=== PATIENT | female | born 1935 | race Caucasian/White ===

== ENCOUNTER 2018-07-06 08:49 | Inpatient (IN) ==
[2018-07-06 09:24] LABS: INFLUENZA A NEGATIVE (NEGATIVE); INFLUENZA B NEGATIVE (NEGATIVE)
[2018-07-06 09:41] LABS: BASO# 0.03 X1000 (0.0-0.2); BASO% 0.3 % (0.0-0.8); EOS# 0.12 X1000 (0.0-0.7); EOS% 1.1 % (0.0-10.0); HEMATOCRIT 36.7 % (37.0-47.0); HEMOGLOBIN 11.7 g/dL (12.0-16.0); IMM GRAN# 0.04 X1000 (0.0-0.04); IMM GRAN% 0.4 % (0.0-0.5); LYMPH# 0.92 X1000 (1.2-3.4); LYMPH% 8.2 % (20.5-51.1); MCH 27.5 PG (27-31); MCHC 31.9 g/dL (33-37); MCV 86.2 FL (81-99); MONO# 1.04 X1000 (0.11-0.59); MONO% 9.2 % (1.7-9.3); NEUT# 9.11 X1000 (1.4-6.5); NEUT% 80.8 % (42.2-75.2); PLT 310 X1000 (130-400); RBC 4.26 XMIL (4.2-5.4); RDW 14.7 % (11.5-14.5); WBC 11.26 X1000 (4.8-10.8)
--- NOTE | 2018-07-06 09:48 | Diag Imaging Result Doc PS360 ---
EXAM: CHEST-2 VIEWS HISTORY: sob TECHNIQUE: Chest two views COMPARISON: None. FINDINGS: The lungs are hyperexpanded. The heart is enlarged. There are sternal wires and surgical clips as well as a left-sided pacemaker. Infiltrates are found in the lower right lung and there is a tiny right pleural effusion. There is a granuloma in the right apex. There is collapse of an upper lumbar vertebra. Severe atherosclerosis. IMPRESSION: 1.Emphysema 2.Right lower lung infiltrates 3.Cardiomegaly Electronically signed by Alexis Pal 07/06/2018 9:46 AM
[2018-07-06 10:04] LABS: ALKALINE PHOSPHATASE 184 U/L (32-104); BUN 31 mg/dL (8-22); CALCIUM 9.1 mg/dL (8.8-10.2); CREATININE 1.6 mg/dL (0.5-0.9); ESTIMATED GFR 31; GLUCOSE 151 mg/dL (70-104); GOT 55 U/L (10-30); GPT 31 U/L (10-36); TCO2 39 mmol/L (25-35); TOTAL PROTEIN 6.8 g/dL (6.3-8.3)
[2018-07-06 10:14] LABS: CHLORIDE 87 mmol/L (98-107); POTASSIUM 2.7 mmol/L (3.5-5.1); SODIUM 138 mmol/L (136-145)
[2018-07-06 10:15] LABS: AGAP 12
--- NOTE | 2018-07-06 10:36 | PROVIDER DOCUMENTATION ---
This chart was entered by Marti Mclaughlin Scribe, acting as scribe for Jose Marcus MD. HPI-General Adult - General Chief Complaint: Shortness of Breath Stated Complaint: SOB/COUGH Time Seen by Provider: 07/06/18 09:03 Source: patient Allergies/Adverse Reactions: Patient Allergies Allergy/AdvReac Type Severity Reaction Status Date / Time codeine AdvReac NAUSEA/VOMI Verified 07/06/18 09:33 TING levofloxacin [From Levaquin] AdvReac Unknown Verified 07/06/18 09:33 Home Medications: Home Medication List Medication Instructions Recorded Confirmed Last Taken Type Amiodarone HCl 1 tab PO DAILY 07/06/18 07/06/18 Unknown History Aspirin [Aspirin EC] 1 tab PO DAILY 07/06/18 07/06/18 Unknown History Carvedilol [Coreg] 1 tab PO BID 07/06/18 07/06/18 Unknown History Cholecalciferol (Vitamin D3) 1 cap PO DAILY 07/06/18 07/06/18 Unknown History [Vitamin D3] Fluticasone 50 Mcg Nasal [place] 1 spray ORDERED DAILY 07/06/18 07/06/18 Unknown History [Flonase] Ondansetron Odt [Zofran Odt] 1 tab PO BID PRN 07/06/18 07/06/18 Unknown History Oxycodone HCl/Acetaminophen 1 tab PO BID 07/06/18 07/06/18 Unknown History [Oxycodone-Acetaminophen 10-325] Potassium Chloride 3 tab PO DAILY 07/06/18 07/06/18 Unknown History Pravastatin Sodium 1 tab PO HS 07/06/18 07/06/18 Unknown History Ropinirole HCl 1 tab PO DAILY 07/06/18 07/06/18 Unknown History Ropinirole HCl 2 tab PO HS 07/06/18 07/06/18 Unknown History Tizanidine HCl 1 tab PO HS 07/06/18 07/06/18 Unknown History Torsemide 4 tab PO BID 07/06/18 07/06/18 Unknown History Warfarin Sodium 1 tab PO DIRECTED 07/06/18 07/06/18 Unknown History - History of Present Illness -Gen Adult Nature of Presenting Problems: 82 y/o female presents to ED with fatigue and body aches onset 1 week ago. Pt reports she was recently put on home O2, and has had difficulty getting out of bed. Pt was also recently discharged from hospital. Pt is alert and oriented. Location of Pain/Injury: reports: generalized Pain Radiation: reports: no radiation Quality of Pain: reports: aching Severity: reports: mild Onset/Duration: reports: 1 week ago Timing: reports: still present Context/Activities at Onset: reports: none Modifying Factors: improves with: nothing Associated Symptoms: reports: fatigue, other (body aches) Similar Symptoms Previously?: No Recently seen or treated by another doctor?: No Review of Systems - Adult - REVIEW OF SYSTEMS - ADULT Constitutional: reports: samantha. denies: chills, fever Eyes: reports: no symptoms reported Ears, Nose, Mouth & Throat: reports: no symptoms reported Cardiovascular: denies: chest pain, palpitations Respiratory: denies: cough, shortness of breath Gastrointestinal: denies: abdominal pain, diarrhea, nausea, vomiting Genitourinary: reports: no symptoms reported Musculoskeletal: reports: other (body aches). denies: back pain, joint pain Integumentary: reports: no symptoms reported Neurological: denies: dizziness/vertigo, seizure Psychiatric: reports: no symptoms reported Endocrine: reports: no symptoms reported Hematologic/Lymphatic: reports: no symptoms reported Allergic/Immunologic: reports: no symptoms reported All Other Systems: Reviewed and Negative Past History - Adult - PAST MEDICAL HISTORY-ADULT Review of Records: reports: Old Records Reviewed, Nursing Assessment Review, Medications Reviewed Major Childhood Illnesses: reports: denies history Cardiovascular: reports: denies history, pacemaker Respiratory: reports: denies history Gastrointestinal: reports: denies history Obstetrical/Gynecological: reports: denies history Genitourinary: reports: denies history, kidney disease Musculoskeletal: reports: denies history Neurological: reports: denies history Endocrine/Immune: reports: denies history Other Conditions: reports: denies history - PRIOR SURGERIES/PROCEDURES Surgical/Procedure History: reports: cholecystectomy, pacemaker, hysterectomy, BTL, orthopedic (extremity) (L hip), joint replacement (hip) - IMMUNIZATION STATUS Childhood Immunizations: See Nurse Assessment Flu Vaccine: See Nurse Assessment - FAMILY HISTORY Family History: reviewed, not pertinent - SOCIAL HISTORY Smoking: non-smoker Substance Use: none/never Alcohol Use Frequency: never Living Situation: family Physical Exam-General - PHYSICAL EXAM-ADULT Initial Vital Signs Reviewed: Yes - CONSTITUTIONAL General Appearance: appears well, alert, no apparent distress, other (frail) - EYES Eyes: PERRL/EOMI, pink conjunctivae - HEAD, EARS, NOSE, MOUTH & THROAT HENMT: normocephalic/atraumatic, moist mucous membranes, normal ENT inspection - NECK Neck: non-tender, full range of motion - RESPIRATORY Respiratory: chest non-tender, lungs clear, normal breath sounds - CARDIOVASCULAR Cardiovascular: normal peripheral pulses, regular rate, rhythm - GASTROINTESTINAL (ABDOMEN) Abdominal Exam: normal bowel sounds, non tender, soft - MUSCULOSKELETAL Back Exam: normal inspection, no CVA tenderness Extremity: normal range of motion, non-tender, normal gait - SKIN Integumentary: normal color, warm/dry - NEUROLOGIC Neurologic: grossly normal - PSYCHIATRIC Psych/Mental Status: normal mood/affect, normal thought content, normal thought process Progress - PLAN OF CARE/RESULTS Progress/Plan/Lab Results: Vital Signs - 8 hr 07/06/18 08:52 Temperature 97.1 F L Pulse Rate 81 Respiratory Rate 18 Blood Pressure 107/42 O2 Sat by Pulse Oximetry 85 L Orders Category Date Time Status Cardiac Monitoring DIRECTED Care 07/06/18 09:11 Active Oxygen Therapy- ED Nursing DIRECTED Care 07/06/18 09:12 Active Saline Loc NOW Care 07/06/18 09:11 Active Use ED:PneumoniaAdultSet As Ordered Care 07/06/18 08:58 Active CHEST-2 VIEWS [RAD] Stat Exams 07/06/18 08:59 Ordered BLOOD CULTURE [BLDCUL] Stat Lab 07/06/18 09:12 Ordered CBC WITH ELECTRONIC DIFF [HEME] Stat Lab 07/06/18 09:12 Ordered COMPREHENSIVE METABOLIC PANEL [CHEM] Stat Lab 07/06/18 09:12 Ordered Flu [INFLUENZA SCREEN PL] Stat Lab 07/06/18 08:57 Received Pneumonia (suspected) Stat Oth 07/06/18 08:58 Ordered Laboratory Tests 07/06/18 07/06/18 08:57 09:20 WBC 11.26 H RBC 4.26 Hgb 11.7 L Hct 36.7 L MCV 86.2 MCH 27.5 MCHC 31.9 L RDW Std Deviation 14.7 H Plt Count 310 MPV 9.0 Immature Gran % (Auto) 0.4 Neut % (Auto) 80.8 H Lymph % (Auto) 8.2 L [place] % (Auto) 9.2 Eos % (Auto) 1.1 Baso % (Auto) 0.3 Immature Gran # (Auto) 0.04 Neut # (Auto) 9.11 H Lymph # (Auto) 0.92 L [place] # (Auto) 1.04 H Eos # (Auto) 0.12 Baso # (Auto) 0.03 Influenza A (Rapid) NEGATIVE Influenza B (Rapid) NEGATIVE Result Diagrams: 07/06/18 09:20 07/06/18 09:20 - REASSESSMENT Reassessment #1 Time Reassessed: 10:35 Status: unchanged (pt gets pneumonia about every year and this is her usual presentation) - XRAY 1 XRAY Study: Chest Impression: Abnormal (FINDINGS: The lungs are hyperexpanded. The heart is enlarged. There are sternal wires and surgical clips as well as a left-sided pacemaker. Infiltrates are found in the lower right lung and there is a tiny right pleural effusion. There is a granuloma in the right apex. There is collapse of an upper lumbar vertebra. Severe atherosclerosis. IMPRESSION: 1.Emphysema 2.Right lower lung infiltrates 3.Cardiomegaly Electronically signed by Alexis Pal 07/06/2018 9:46 AM) Departure - Departure Date of Disposition Decision: 07/06/18 Time of Disposition Decision: 10:35 DIAGNOSIS: Pneumonia Qualifiers: Pneumonia type: due to unspecified organism Laterality: right Lung location: lower lobe of lung Qualified Code(s): J18.1 - Lobar pneumonia, unspecified organism Disposition: ADMITTED INPATIENT 09 Certified Medical Emergency: Emergent Condition: Stable Referrals and Follow-Ups: Yogi Schmitz [Primary Care Provider] - - Critical Care Note This patient required my direct & personal management of CC.: No Attestation - Physician/ VIKTORIYA Attestation Patient care was provided by Advanced Practice Provider:: No The physician spent face to face time with patient:: Yes Advanced Practice Provider documentation review:: Supervising physician onsite and consulted in the evaluation and care of this patient. The physician did have a face to face encounter with the patient. This chart was documented by the indicated scribe, (Marti Mclaughlin Scribe) and accurately reflects the services I performed and decisions made by me, Jose Marcus MD, as attested by the provider's signature.
[2018-07-06] MEDS: ROCEPHIN 1 GM in NS 50 ML IV SCH (10:42)
[2018-07-06] MEDS ORDERED: KLOR-CON PO ONE (11:23)
[2018-07-06] MEDS: ZITHROMAX 500 MG/NS 500 MG/250 ML IVPB IV SCH (11:40)
[2018-07-06 12:18] LABS: INR 4.3; PROTIME 43.2 Seconds (11.0-16.0)
--- NOTE | 2018-07-06 12:26 | HISTORY AND PHYSICAL ---
PRIMARY CARE PHYSICIAN: Dr. Yogi Schmitz. CHIEF COMPLAINT: Fatigue, body aches, and shortness of breath for 1 week that has progressively worsened despite using her home O2. HISTORY OF PRESENTING ILLNESS: This is an 82-year-old, female who presents to [facility] ER with complaints of fatigue, body aches, shortness of breath for 1 week that has progressively worsened. She was recently placed on home O2 via nasal cannula for COPD/emphysema, and these issues continue despite her home O2. Her workup in the emergency room showed an O2 saturation on arrival on 2 L via nasal cannula at 85%. White blood cell count was 11.26. Potassium was 2.7. BUN of 31, creatinine 1.6. Chest x-ray showed a right lower lung infiltrate and emphysema. She will be admitted for further evaluation and treatment. PAST MEDICAL HISTORY: Chronic kidney disease stage 3, COPD with emphysema, hyperlipidemia, [place], GERD, and hypertension. PAST SURGICAL HISTORY: Cholecystectomy, bilateral tubal ligation, hysterectomy, pacemaker defibrillator placement, CABG. FAMILY HISTORY: Reviewed and noncontributory. SOCIAL HISTORY: She currently lives with family. Denies any tobacco, alcohol, and illicit drug use. ALLERGIES: Codeine and Levaquin. HOME MEDICATIONS: 1. Amiodarone 200 mg p.o. daily. 2. Aspirin 81 mg p.o. daily. 3. Coreg 6.25 mg p.o. b.i.d. 4. Vitamin D3 5000 units p.o. daily. 5. Flonase 1 spray nasally daily. 6. Zofran 4 mg p.o. b.i.d. p.r.n. 7. Oxycodone 10 one p.o. b.i.d. 8. Potassium 20 mEq 3 tablets p.o. daily. 9. Pravastatin 40 mg p.o. at bedtime. 10. Ropinirole 5 mg p.o. daily and 2 tablets at bedtime. 11. Tizanidine 4 mg p.o. at bedtime. 12. Torsemide 20 mg 4 tablets p.o. b.i.d. 13. Coumadin 1 mg p.o. as directed, and we will need to verify what the directions of this medication is. LABORATORY DATA: White blood cell count of 11.26, hemoglobin of 11.7, hematocrit 36.7, platelets 310,000. Sodium 138, potassium 2.7, chloride 87, CO2 of 39. BUN of 31, creatinine 1.6, glucose 151. Influenza A and B are both negative. Chest x-ray showed emphysema and a right lower lung infiltrate and cardiomegaly. REVIEW OF SYSTEMS: She denied any fever, chills, blurred vision, dizziness. She denied any chest pain. She has had a mild nonproductive cough, shortness of breath. Denied any abdominal pain, constipation, diarrhea, burning or hurting with urination. PHYSICAL EXAMINATION: VITAL SIGNS: On arrival, she had a temperature of 97.1, pulse 81, respirations 18, blood pressure 107/42, saturating 85% on 2 L via nasal cannula. GENERAL: This is an 82-year-old, thin, frail female who is lying in the bed and answers questions appropriately. HEENT: Normocephalic and atraumatic. Normal ENT inspection. The oropharynx and nares are clear. EYES: Pupils are equal, round, and reactive to light and accommodation. Extraocular movements are intact. NECK: Normal inspection. Normal range of motion. LUNGS: With decreased breath sounds to bilateral lower bases. Equal lung expansion. Chest wall movement noted. O2 via nasal cannula currently in use. HEART: With regular rate and rhythm. No murmurs, rubs, or gallops. ABDOMEN: Soft, nontender, nondistended. Bowel sounds are present x4 quadrants. MUSCULOSKELETAL: She has 4/5 strength x4 extremities. NEUROLOGICAL: The cranial nerves 2-12 appear grossly intact. ASSESSMENT: 1. Right lower lobe pneumonia. 2. Acute respiratory failure with hypoxemia. 3. Hypokalemia. 4. Chronic kidney disease, stage 3, aware. PLAN: She is being admitted to the medical unit at [facility]. We will place her on a healthy heart diet. We are going to check a PT with INR. She will be placed on Rocephin 1 gram IV q. 24, azithromycin 500 IV q. 24, potassium 60 mEq p.o. x1. Continue her home medications. Again, we need to verify her Coumadin dosage on what is actually administered. We will place on O2 per protocol. DuoNeb q.4 hours. Recheck a CBC and a BMP in the a.m. and further orders after being seen by attending. Dictated by CHARLINE Perez for Terrence Moore MD cc: CHARLINE Perez MD Charles D Coffey, MD
[2018-07-06] MEDS ORDERED: NS 500 ML IV ONE (14:25)
[2018-07-06] MEDS ORDERED: NS 1,000 ML IV SCH (14:30)
[2018-07-06] MEDS ORDERED: ZOFRAN ODT PO PRN (17:50)
[2018-07-06] MEDS: DUONEB (A & A) INH SCH ×3 (18:18→23:12)
[2018-07-06] MEDS ORDERED: DUONEB (A & A) INH PRN (20:56)
[2018-07-06] MEDS ORDERED: REQUIP PO SCH (21:00)
[2018-07-06] MEDS ORDERED: SODIUM CHLORIDE 0.9% INJ SCH (21:00)
[2018-07-06] MEDS ORDERED: COREG PO SCH (21:00)
[2018-07-06] MEDS ORDERED: PERCOCET-10 PO SCH (21:00)
[2018-07-06] MEDS ORDERED: COUMADIN PO SCH (21:00)
[2018-07-06] MEDS ORDERED: DEMADEX PO SCH (21:00)
[2018-07-06] MEDS: NS 1,000 ML IV SCH (21:34)
[2018-07-06] MEDS: PRAVACHOL PO SCH (21:36)
[2018-07-06] MEDS: ZANAFLEX PO SCH (21:36)
[2018-07-06] MEDS: PERCOCET-10 PO PRN (21:36)
[2018-07-06] MEDS: PROTONIX IV SCH (21:36)
[2018-07-06] MEDS: KLONOPIN PO SCH (22:32)
[2018-07-07] MEDS: DUONEB (A & A) INH SCH ×6 (03:04→23:08)
--- NOTE | 2018-07-07 05:06 | PROGRESS NOTE ---
DATE: 07/06/2018 SUBJECTIVE: The patient has no focal complaints. OBJECTIVE: Vital Signs: Blood pressure is 116/63, heart rate of 80, respiratory rate 18, temperature 99.9 degrees, 95% on 2 L. Cardiovascular: Regular rate and rhythm. Pulmonary: Bilateral breath sounds clear to auscultation. GI: Soft, nontender, nondistended. Bowel sounds were positive. Laboratory Data: Her white count is 11, hemoglobin and hematocrit 11 and 36, platelets of 310,000. INR is very high at 4.3. Potassium of 2.7, creatinine of 1.6. ASSESSMENT AND PLAN: On exam, she has rales at the bases, left and right. She was hypoxic but she is supposed to be on home oxygen. It was reported to me that she is not on home oxygen, but she was more hypoxic than she was previously. In any case, she has respiratory failure and pneumonia. She is a little bit coagulopathic and we will continue to follow. She is on empiric antibiotics. We will continue antibiotics an see how she does. She got a little bit hypotensive in the emergency department so we are going to hold her medications until we can get that a bit clarified. It is unclear to what her baseline kidney function is because we do not have any data here but we are going to give her some gentle hydration and see how she does. cc: Terrence Moore MD
[2018-07-07 06:26] LABS: BASO# 0.01 X1000 (0.0-0.2); BASO% 0.1 % (0.0-0.8); EOS# 0.02 X1000 (0.0-0.7); EOS% 0.1 % (0.0-10.0); HEMATOCRIT 32.9 % (37.0-47.0); HEMOGLOBIN 10.4 g/dL (12.0-16.0); IMM GRAN# 0.05 X1000 (0.0-0.04); IMM GRAN% 0.4 % (0.0-0.5); LYMPH# 0.99 X1000 (1.2-3.4); MCH 27.6 PG (27-31); MCHC 31.6 g/dL (33-37); MCV 87.3 FL (81-99); MONO# 1.05 X1000 (0.11-0.59); MONO% 7.4 % (1.7-9.3); NEUT# 12.05 X1000 (1.4-6.5); PLT 279 X1000 (130-400); RBC 3.77 XMIL (4.2-5.4); RDW 15.1 % (11.5-14.5); WBC 14.17 X1000 (4.8-10.8)
[2018-07-07 06:50] LABS: CALCIUM 8.4 mg/dL (8.8-10.2); CREATININE 1.2 mg/dL (0.5-0.9); POTASSIUM 3.5 mmol/L (3.5-5.1)
[2018-07-07 07:07] LABS: INR 4.75; PROTIME 46.7 Seconds (11.0-16.0)
[2018-07-07] MEDS: VITAMIN D PO SCH (08:50)
[2018-07-07] MEDS: ASPIRIN EC PO SCH (08:50)
[2018-07-07] MEDS: FLONASE NAS SCH (08:50)
[2018-07-07] MEDS ORDERED: REQUIP PO SCH (09:00)
[2018-07-07] MEDS ORDERED: KLOR-CON PO SCH (09:00)
[2018-07-07] MEDS: ROPINIROLE HCL PO SCH ×2 (10:40→20:29)
[2018-07-07] MEDS: ROCEPHIN 1 GM in NS 50 ML IV SCH (11:21)
[2018-07-07] MEDS: ZITHROMAX 500 MG/NS 500 MG/250 ML IVPB IV SCH (12:53)
--- NOTE | 2018-07-07 15:39 | PROGRESS NOTE ---
DATE: 07/07/2018 SUBJECTIVE: Patient has no focal complaints. OBJECTIVE: Vital Signs: Blood pressure is 99/39, heart rate of 80, respiratory rate 18, temperature 97.4 degrees, satting 95% on 2 L. Cardiovascular: Regular rate and rhythm. Pulmonary: Bilateral breath sounds. Clear to auscultation. GI: Soft, nontender, nondistended. Bowel sounds are positive. LABS: White count 14, hemoglobin and hematocrit 10 and 32, platelets 279. INR 4.75. Creatinine of 1.2. PROBLEM LIST: 1. Right lower lobe pneumonia. We will continue antibiotics and pulmonary toilet, and we will continue to follow. 2. Acute hypoxic respiratory failure. She is already on oxygen. We will kind to have to evaluate that further and monitor closely. 3. Coagulopathy. She still has a persistent elevation in INR despite multiple medications. Will hold her Coumadin and monitor for trending downwards. 4. Coronary artery disease history. She seems to be stable on current medications. 5. Acute kidney injury. We will continue hydration and follow closely. DISPOSITION: Pending clinical status. cc: Terrence Moore MD
[2018-07-07] MEDS ORDERED: VITAMIN K SUBQ ONE (15:51)
[2018-07-07] MEDS: NS 1,000 ML IV SCH (18:49)
[2018-07-07] MEDS: ZANAFLEX PO SCH (20:28)
[2018-07-07] MEDS: PRAVACHOL PO SCH (20:28)
[2018-07-07] MEDS: KLONOPIN PO SCH (20:28)
[2018-07-07] MEDS: PROTONIX IV SCH (20:29)
[2018-07-07] MEDS: PERCOCET-10 PO PRN (20:39)
[2018-07-08] MEDS: DUONEB (A & A) INH SCH ×6 (02:30→22:43)
[2018-07-08 07:23] LABS: BASO# 0.02 X1000 (0.0-0.2); BASO% 0.2 % (0.0-0.8); EOS# 0.16 X1000 (0.0-0.7); EOS% 1.9 % (0.0-10.0); HEMATOCRIT 33.1 % (37.0-47.0); HEMOGLOBIN 9.9 g/dL (12.0-16.0); IMM GRAN# 0.07 X1000 (0.0-0.04); IMM GRAN% 0.8 % (0.0-0.5); LYMPH# 0.97 X1000 (1.2-3.4); LYMPH% 11.4 % (20.5-51.1); MCH 26.5 PG (27-31); MCHC 29.9 g/dL (33-37); MCV 88.7 FL (81-99); MONO% 11.7 % (1.7-9.3); MPV 8.7 FL (7.4-10.4); PLT 289 X1000 (130-400); RBC 3.73 XMIL (4.2-5.4); RDW 15.3 % (11.5-14.5); WBC 8.52 X1000 (4.8-10.8)
[2018-07-08 07:36] LABS: INR 3.6; PROTIME 37.6 Seconds (11.0-16.0)
[2018-07-08 07:59] LABS: CALCIUM 8.6 mg/dL (8.8-10.2); CREATININE 0.9 mg/dL (0.5-0.9); POTASSIUM 3.6 mmol/L (3.5-5.1)
[2018-07-08] MEDS: NON-FORMULARY MED PO SCH (08:06)
[2018-07-08] MEDS: FLONASE NAS SCH (08:07)
[2018-07-08] MEDS: ASPIRIN EC PO SCH (08:08)
[2018-07-08] MEDS: VITAMIN D PO SCH (08:08)
[2018-07-08] MEDS: NS 1,000 ML IV SCH (08:11)
[2018-07-08] MEDS: ROCEPHIN 1 GM in NS 50 ML IV SCH (11:07)
[2018-07-08] MEDS: ZITHROMAX 500 MG/NS 500 MG/250 ML IVPB IV SCH (12:02)
[2018-07-08] MEDS: PROTONIX IV SCH (21:37)
[2018-07-08] MEDS: ZANAFLEX PO SCH (21:37)
[2018-07-08] MEDS: PRAVACHOL PO SCH (21:37)
[2018-07-08] MEDS: ROPINIROLE HCL PO SCH (21:37)
[2018-07-08] MEDS: PERCOCET-10 PO PRN (21:37)
[2018-07-08] MEDS: KLONOPIN PO SCH (21:37)
--- NOTE | 2018-07-08 22:39 | PROGRESS NOTE ---
DATE: 07/08/2018 SUBJECTIVE: The patient has no focal complaints. She feels like she is breathing a bit better. OBJECTIVE: Blood pressure 124/48, stable.Cardiovascular: Regular rate and rhythm. Pulmonary: Bilateral breath sounds. Clear to auscultation. Gastrointestinal: Soft, nontender, nondistended. Bowel sounds are positive. LABORATORY DATA: White count 8, hemoglobin 9.9, hematocrit 33, platelets 289,000. Basic was normal. PROBLEM LIST: 1. Pneumonia. She seems to be doing better. She is currently on Rocephin and azithromycin. Seems to be doing okay. I think we could probably switch her to oral azithromycin. 2. Coagulopathy. That seems to be stable on her current medications, which is mostly stable. 3. Paroxysmal atrial fibrillation. Seems to be rate controlled on her current medications. DISPOSITION: Looking at rehab placement. We will continue treatment and follow closely. cc: Terrence Moore MD
[2018-07-09] MEDS: DUONEB (A & A) INH SCH ×6 (03:40→23:10)
[2018-07-09 05:03] LABS: BILIRUBIN URINE NEGATIVE (NEGATIVE); BLOOD URINE NEGATIVE (NEGATIVE); CLARITY CLEAR (CLEAR); COLOR YELLOW; GLUCOSE URINE NEGATIVE (NEGATIVE); KETONE URINE NEGATIVE (NEGATIVE); LEUKOCYTES URINE NEGATIVE (NEGATIVE); NITRITE URINE NEGATIVE (NEGATIVE); PROTEIN URINE NEGATIVE (NEGATIVE); UROBILINOGEN URINE NORMAL
[2018-07-09 05:07] LABS: URINE BACTERIA 3+ /HFP; URINE EPITHELIAL CELLS <10 /HPF (<10); URINE RBC <10 /HPF (<10); URINE SOURCE CLEAN CATCH; URINE WBC <10 /HPF (<10)
[2018-07-09 05:08] LABS: URINE CAST GRANULAR PRESENT /LPF
[2018-07-09 07:15] LABS: AGAP 6; BUN 11 mg/dL (8-22); CALCIUM 8.9 mg/dL (8.8-10.2); CHLORIDE 104 mmol/L (98-107); COSMO 282; CREATININE 0.7 mg/dL (0.5-0.9); ESTIMATED GFR > 60; GLUCOSE 118 mg/dL (70-104); INR 2.63; POTASSIUM 3.2 mmol/L (3.5-5.1); PROTIME 29.3 Seconds (11.0-16.0); SODIUM 141 mmol/L (136-145); TCO2 31 mmol/L (25-35)
[2018-07-09 07:17] LABS: BASO# 0.02 X1000 (0.0-0.2); BASO% 0.2 % (0.0-0.8); EOS# 0.17 X1000 (0.0-0.7); HEMATOCRIT 31.2 % (37.0-47.0); HEMOGLOBIN 9.2 g/dL (12.0-16.0); IMM GRAN# 0.07 X1000 (0.0-0.04); IMM GRAN% 0.8 % (0.0-0.5); LYMPH# 0.87 X1000 (1.2-3.4); LYMPH% 10.2 % (20.5-51.1); MCH 26.5 PG (27-31); MCHC 29.5 g/dL (33-37); MCV 89.9 FL (81-99); MONO% 12.9 % (1.7-9.3); MPV 8.9 FL (7.4-10.4); NEUT# 6.33 X1000 (1.4-6.5); NEUT% 73.9 % (42.2-75.2); PLT 298 X1000 (130-400); RBC 3.47 XMIL (4.2-5.4); RDW 15.5 % (11.5-14.5); WBC 8.56 X1000 (4.8-10.8)
[2018-07-09] MEDS: PERCOCET-10 PO PRN ×2 (09:56→19:39)
[2018-07-09] MEDS: ROCEPHIN 1 GM in NS 50 ML IV SCH (09:57)
[2018-07-09] MEDS: FLONASE NAS SCH (10:01)
[2018-07-09] MEDS: VITAMIN D PO SCH (10:02)
[2018-07-09] MEDS: ZITHROMAX PO SCH (10:02)
[2018-07-09] MEDS: NON-FORMULARY MED PO SCH (10:03)
[2018-07-09] MEDS: PROTONIX PO SCH ×2 (10:08→20:35)
[2018-07-09] MEDS: ASPIRIN EC PO SCH (10:08)
[2018-07-09] MEDS ORDERED: KLOR-CON PO ONE (12:24)
--- NOTE | 2018-07-09 19:01 | PROGRESS NOTE ---
DATE: 07/09/2018 SUBJECTIVE: Patient has no major complaints. OBJECTIVE: Blood pressure is 126/48, heart rate of 82, respiratory rate 18, temperature 98 degrees, 94% on 3 L.Cardiovascular: Regular rate and rhythm. Pulmonary: Bilateral breath sounds clear to auscultation. GI: Soft, nontender, nondistended. Bowel sounds are positive. LABORATORY DATA: White count 8, hemoglobin and hematocrit 9 and 31, platelets 298,000. INR 2.6, potassium 3.2. Urine was clear. Oropharynx I did not notice any particular lesions but she is complaining of pain. 1. Pneumonia right lower lobe pneumonia. We will continue empiric antibiotics. She is still somewhat short of breath. She is still somewhat hypoxic. Unclear she has a home oxygen requirement. I think actually yeah she has just been situated with home oxygen but she is not doing very much pulmonary toilet. She needs to get up and ambulate. 2. Coagulopathy. INR is stable. I am going to put her back on low-dose Coumadin. She is on a very we really do not know what she is on 1 mg a day, which I probably would not think that is probably accurate because she is a little person little in stature she is 5 feet and she is 112 pounds so she may not require very much anticoagulation. Will repeat her chest x-ray tomorrow and follow. DISPOSITION: We are looking at inpatient rehab when patient is stable hopefully by Wednesday. Will encourage trying to get her up and around because I do not think lying in the bed is helping with her pulmonary toilet at this point. cc: Terrence Moore MD
[2018-07-09] MEDS: ROPINIROLE HCL PO SCH (20:34)
[2018-07-09] MEDS: KLONOPIN PO SCH (20:34)
[2018-07-09] MEDS: ZANAFLEX PO SCH (20:35)
[2018-07-09] MEDS: PRAVACHOL PO SCH (20:35)
[2018-07-09] MEDS: COUMADIN PO SCH (20:35)
[2018-07-09] MEDS: MBX SOLUTION MT PRN (20:56)
[2018-07-10] MEDS: DUONEB (A & A) INH SCH ×6 (03:20→23:00)
[2018-07-10] MEDS: PROTONIX PO SCH ×2 (06:36→20:42)
[2018-07-10] MEDS: MBX SOLUTION MT PRN (06:37)
[2018-07-10 07:31] LABS: BASO# 0.02 X1000 (0.0-0.2); BASO% 0.2 % (0.0-0.8); EOS# 0.17 X1000 (0.0-0.7); EOS% 1.8 % (0.0-10.0); HEMATOCRIT 35.3 % (37.0-47.0); HEMOGLOBIN 10.7 g/dL (12.0-16.0); IMM GRAN# 0.09 X1000 (0.0-0.04); IMM GRAN% 0.9 % (0.0-0.5); LYMPH# 0.91 X1000 (1.2-3.4); LYMPH% 9.4 % (20.5-51.1); MCH 27.2 PG (27-31); MCHC 30.3 g/dL (33-37); MCV 89.8 FL (81-99); MONO# 1.15 X1000 (0.11-0.59); MONO% 11.9 % (1.7-9.3); MPV 8.8 FL (7.4-10.4); NEUT# 7.35 X1000 (1.4-6.5); NEUT% 75.8 % (42.2-75.2); PLT 351 X1000 (130-400); RBC 3.93 XMIL (4.2-5.4); RDW 15.6 % (11.5-14.5); WBC 9.69 X1000 (4.8-10.8)
[2018-07-10 08:06] LABS: AGAP 7; BUN 10 mg/dL (8-22); CALCIUM 9.7 mg/dL (8.8-10.2); CHLORIDE 103 mmol/L (98-107); COSMO 282; CREATININE 0.7 mg/dL (0.5-0.9); ESTIMATED GFR > 60; GLUCOSE 90 mg/dL (70-104); POTASSIUM 4.5 mmol/L (3.5-5.1); SODIUM 142 mmol/L (136-145); TCO2 32 mmol/L (25-35)
[2018-07-10 09:20] LABS: BE 10.1 mmoll (-3.0-3.0); BLOOD TYPE ARTERIAL; HCO3-(ACT) 32.7 mmoll (20.0-26.0); O2(CT) 12.7 mL/dL (15.0-23.0); O2HB 91.2 % (95.0-99.0); PO2(98.6) 62 mmHg (60-100); SAMPLE BLOOD; SAO2 94.4 % (95.0-100.0); THB 9.9 g/dL (11.5-17.4)
[2018-07-10 09:39] LABS: INR 2.29; PROTIME 26.3 Seconds (11.0-16.0)
[2018-07-10 09:47] LABS: ALLEN TEST YES; MODALITY CANNULA; PCO2(98.6) 59 mmHg (35-45)
--- NOTE | 2018-07-10 09:50 | Diag Imaging Result Doc PS360 ---
EXAM: CHEST-2 VIEWS 07/10/2018 HISTORY: hypoxia TECHNIQUE: PA and lateral chest COMMENT: Compared to 07/06/2018 there is denser opacification of the left lower lobe and increased loculated pleural fluid on the right. There is worsened right lower lobe atelectasis. IMPRESSION: Worsened atelectasis versus pneumonia left lower lobe and to a lesser extent right lower lobe. The possibility of pulmonary edema is suspected. Worsened right pleural fluid collection. Electronically signed by Nito Wakefield 07/10/2018 9:48 AM
[2018-07-10] MEDS: ZITHROMAX PO SCH (10:49)
[2018-07-10] MEDS: ASPIRIN EC PO SCH (10:49)
[2018-07-10] MEDS: VITAMIN D PO SCH (10:49)
[2018-07-10] MEDS: FLONASE NAS SCH (10:50)
[2018-07-10] MEDS: NON-FORMULARY MED PO SCH (10:50)
[2018-07-10] MEDS: ROCEPHIN 1 GM in NS 50 ML IV SCH (10:51)
--- NOTE | 2018-07-10 12:52 | PROGRESS NOTE ---
DATE: 07/10/2018 SUBJECTIVE: The patient has no major complaints. She was a little bit more sedated yesterday, but she is more awake today. OBJECTIVE: Vital signs: Blood pressure is 101/40, heart rate of 80, respiratory rate 18, temperature 97.8 degrees. Cardiovascular: Regular rate and rhythm. Pulmonary: Bilateral breath sounds. Clear to auscultation. GI: Soft, nontender, nondistended. Bowel sounds are positive. Extremity: No clubbing or cyanosis. Lymphatic: No peripheral edema. Neurological: Nonfocal. She is very pale, but she is awake and alert. LABORATORY DATA: White count 9, hemoglobin and hematocrit 10 and 35, platelets 351,000. PH 7.4, pCO2 59, PaO2 62. Basic was normal. PROBLEM LIST: 1. Right lower lobe pneumonia. She is on antibiotics, particularly Rocephin and azithromycin. We will continue treatment. White count is normalized. She seems to be doing okay. 2. Pulmonary edema. It looks like she has got some vascular congestion now. We will initiate diuretics. She is usually on a pretty decent dose of torsemide. She does have a cardiac history, status post CABG. We will pursue echo tomorrow just to better evaluate her cardiac function. 3. Chronic obstructive pulmonary disease exacerbation. Again, she seems to be stable from that standpoint. 4. Coagulopathy. She is on very low-dose anticoagulation which we will continue. She is therapeutic. I am not quite sure what her dose is. Stabilization here. DISPOSITION: Rehab when she is stable. cc: Terrence Moore MD
[2018-07-10] MEDS: LASIX IV SCH (14:12)
[2018-07-10 14:50] LABS: BILIRUBIN URINE NEGATIVE (NEGATIVE); BLOOD URINE NEGATIVE (NEGATIVE); CLARITY CLEAR (CLEAR); COLOR YELLOW; GLUCOSE URINE NEGATIVE (NEGATIVE); KETONE URINE NEGATIVE (NEGATIVE); LEUKOCYTES URINE NEGATIVE (NEGATIVE); NITRITE URINE NEGATIVE (NEGATIVE); PROTEIN URINE NEGATIVE (NEGATIVE); UROBILINOGEN URINE NORMAL
[2018-07-10 15:15] LABS: URINE EPITHELIAL CELLS <10 /HPF (<10)
[2018-07-10 15:16] LABS: URINE BACTERIA NEGATIVE /HFP; URINE CAST NONE SEEN /LPF; URINE CRYSTAL NONE SEEN /HPF; URINE SOURCE CATH; URINE YEAST NONE SEEN /HPF
[2018-07-10] MEDS: COUMADIN PO SCH (20:41)
[2018-07-10] MEDS: PRAVACHOL PO SCH (20:41)
[2018-07-10] MEDS: KLONOPIN PO SCH (20:41)
[2018-07-10] MEDS: ROPINIROLE HCL PO SCH (20:42)
[2018-07-10] MEDS: PERCOCET-10 PO PRN (20:42)
[2018-07-10] MEDS: ZANAFLEX PO SCH (20:42)
[2018-07-11] MEDS: LASIX IV SCH ×3 (00:04→23:23)
[2018-07-11] MEDS: DUONEB (A & A) INH SCH ×6 (03:10→23:07)
[2018-07-11 05:29] LABS: BASO# 0.02 X1000 (0.0-0.2); BASO% 0.3 % (0.0-0.8); EOS# 0.16 X1000 (0.0-0.7); EOS% 2.2 % (0.0-10.0); HEMATOCRIT 32.3 % (37.0-47.0); HEMOGLOBIN 9.7 g/dL (12.0-16.0); IMM GRAN# 0.06 X1000 (0.0-0.04); IMM GRAN% 0.8 % (0.0-0.5); LYMPH# 0.93 X1000 (1.2-3.4); MCH 26.6 PG (27-31); MCV 88.7 FL (81-99); MONO# 0.88 X1000 (0.11-0.59); MONO% 12.3 % (1.7-9.3); MPV 8.8 FL (7.4-10.4); NEUT# 5.13 X1000 (1.4-6.5); NEUT% 71.4 % (42.2-75.2); PLT 342 X1000 (130-400); RBC 3.64 XMIL (4.2-5.4); RDW 15.3 % (11.5-14.5); WBC 7.18 X1000 (4.8-10.8)
[2018-07-11 05:42] LABS: AGAP 5; BUN 9 mg/dL (8-22); CALCIUM 9.2 mg/dL (8.8-10.2); CHLORIDE 97 mmol/L (98-107); COSMO 283; CREATININE 0.8 mg/dL (0.5-0.9); ESTIMATED GFR > 60; GLUCOSE 116 mg/dL (70-104); POTASSIUM 3.5 mmol/L (3.5-5.1); SODIUM 142 mmol/L (136-145); TCO2 40 mmol/L (25-35)
[2018-07-11 05:53] LABS: INR 2.45; PROTIME 27.7 Seconds (11.0-16.0)
[2018-07-11] MEDS: PROTONIX PO SCH ×2 (06:19→20:59)
[2018-07-11] MEDS: VITAMIN D PO SCH (10:41)
[2018-07-11] MEDS: ZITHROMAX PO SCH (10:41)
[2018-07-11] MEDS: ASPIRIN EC PO SCH (10:41)
[2018-07-11] MEDS: ROCEPHIN 1 GM in NS 50 ML IV SCH (10:42)
[2018-07-11] MEDS: NON-FORMULARY MED PO SCH (12:25)
[2018-07-11] MEDS: FLONASE NAS SCH (12:26)
--- NOTE | 2018-07-11 15:20 | ECHO REPORT ---
ORDER DATE: 07/11/2018 ECHOCARDIOGRAM: INDICATIONS: COPD, pneumonia, pacemaker, cardiomegaly. FINDINGS: 1. The right atrium is mildly enlarged at 4.7 cm. A linear echodensity consistent with device lead is seen the right heart chambers. 2. Mild tricuspid regurgitation. RV systolic pressure of 68. 3. Normal RV size and systolic function. 4. No significant pulmonic insufficiency. 5. The left atrium appears mildly enlarged with a dimension of 4.4 cm. 6. No mitral valve prolapse. Mild mitral regurgitation. 7. Normal LV size, end-diastolic dimension of 4.3 cm. Mild left ventricular hypertrophy with a posterior and interventricular septal wall thickness of 0.9 and 1.2 cm respectively. LV systolic function is difficult to estimate on this study secondary to septal motion consistent with intraventricular conduction delay or pacing as well as poor endocardial border resolution and off axis images. The estimated EF is around 50%. 8. Aortic valve opens well. No evidence of stenosis or insufficiency. 9. Aorta appears normal in visualized segments. 10. No pericardial effusion. There does appear to be a pleural effusion present. cc: MD Terrence Bowling MD
[2018-07-11] MEDS: ZANAFLEX PO SCH (20:59)
[2018-07-11] MEDS: COUMADIN PO SCH (20:59)
[2018-07-11] MEDS: KLONOPIN PO SCH (20:59)
[2018-07-11] MEDS: PRAVACHOL PO SCH (21:00)
[2018-07-11] MEDS: ROPINIROLE HCL PO SCH (21:00)
[2018-07-11] MEDS: PERCOCET-10 PO PRN (21:00)
--- NOTE | 2018-07-11 23:28 | PROGRESS NOTE ---
DATE: 07/11/2018 SUBJECTIVE: Patient overall has no new complaints. PHYSICAL: Temperature 98.4, pulse 81, respiratory 20, BP 115/43.General: Patient is awake, alert, currently in no distress. HEENT: Normocephalic. Neck: Supple. CV: Regular rate. Chest: Clear. Abdomen: Soft nondistended. ASSESSMENT: 1. Right lower lobe pneumonia. 2. Pulmonary edema . 3. Known chronic obstructive pulmonary disease with exacerbation . 4. Coagulopathy. PLAN: Will continue azithromycin, Rocephin, continue to follow, further orders as needed. cc: Akhli Ojeda MD
[2018-07-12] MEDS: DUONEB (A & A) INH SCH ×6 (03:18→23:25)
[2018-07-12] MEDS: PROTONIX PO SCH ×2 (06:27→20:28)
[2018-07-12 07:30] LABS: INR 2.28; PROTIME 26.2 Seconds (11.0-16.0)
[2018-07-12] MEDS: ASPIRIN EC PO SCH (09:07)
[2018-07-12] MEDS: NON-FORMULARY MED PO SCH (09:07)
[2018-07-12] MEDS: VITAMIN D PO SCH (09:07)
[2018-07-12] MEDS: LASIX PO SCH (09:07)
[2018-07-12] MEDS: ZITHROMAX PO SCH (09:07)
[2018-07-12] MEDS: FLONASE NAS SCH (09:08)
[2018-07-12] MEDS: MBX SOLUTION MT PRN ×2 (09:50→20:17)
[2018-07-12] MEDS: ROCEPHIN 1 GM in NS 50 ML IV SCH (09:50)
[2018-07-12] MEDS: PERCOCET-10 PO PRN ×2 (09:50→20:16)
[2018-07-12] MEDS: PRAVACHOL PO SCH (20:16)
[2018-07-12] MEDS: KLONOPIN PO SCH (20:16)
[2018-07-12] MEDS: COUMADIN PO SCH (20:16)
[2018-07-12] MEDS: ROPINIROLE HCL PO SCH (20:16)
[2018-07-12] MEDS: ZANAFLEX PO SCH (20:17)
--- NOTE | 2018-07-13 02:20 | PROGRESS NOTE ---
DATE: 07/12/2018 SUBJECTIVE: The patient notes overall she is feeling a little bit better. Denies any chest pain. She has not really been out of bed. Denies any fevers or chills. PHYSICAL EXAMINATION: Vital Signs: Temperature 97.8, pulse 80, respiratory 20, BP 108/54. General: The patient is awake and alert. She is very pleasant to talk with. She is still on high-flow oxygen. HEENT: Normocephalic. Neck: Supple. Cardiovascular: Regular rate. No murmurs. Chest: Clear and nonlabored. Abdomen: Soft and nondistended. ASSESSMENT: 1. Right lower lobe pneumonia. 2. Acute hypoxic respiratory failure. The patient is still on high-flow oxygen. 3. Pulmonary edema. 4. Chronic obstructive pulmonary disease. 5. Coagulopathy. PLAN: We will decrease her Lasix to 40 p.o. b.i.d. Continue azithromycin and Rocephin. Her INR is stable at 2.2. H H is stable at 9 and 27. We will continue to attempt to wean her oxygen and hopefully if this can be weaned she can be transitioned to rehab. cc: Akhil Ojeda MD
[2018-07-13] MEDS: DUONEB (A & A) INH SCH ×6 (03:20→23:17)
[2018-07-13] MEDS: PROTONIX PO SCH ×2 (06:08→20:09)
[2018-07-13] MEDS: ASPIRIN EC PO SCH (08:20)
[2018-07-13] MEDS: PERCOCET-10 PO PRN ×2 (08:20→20:13)
[2018-07-13] MEDS: NON-FORMULARY MED PO SCH (08:21)
[2018-07-13] MEDS: ZITHROMAX PO SCH (08:21)
[2018-07-13] MEDS: MBX SOLUTION MT PRN (08:21)
[2018-07-13] MEDS: VITAMIN D PO SCH (08:21)
[2018-07-13] MEDS: LASIX PO SCH (08:21)
[2018-07-13] MEDS: FLONASE NAS SCH (08:22)
[2018-07-13 09:17] LABS: INR 2.47; PROTIME 27.9 Seconds (11.0-16.0)
[2018-07-13] MEDS: ROCEPHIN 1 GM in NS 50 ML IV SCH (11:29)
--- NOTE | 2018-07-13 18:27 | PROGRESS NOTE ---
DATE: 07/13/2018 SUBJECTIVE: The patient notes that she is feeling a lot better although she is still very tired and fatigued, unable to get out of bed. Denies any chest pains or palpitations. OBJECTIVE: Vital Signs: Temperature 97, pulse 102, respiratory 18, blood pressure 99/49. General: The patient is an elderly female who is currently in mild to moderate respiratory distress due to hypoxic respiratory failure. She is very pleasant to talk with. She is still requiring high-flow oxygen. HEENT: Normocephalic. Neck: Supple. CARDIOVASCULAR: Regular rate. Chest: Clear and nonlabored. No current wheezing. Decreased but equal breath sounds bilaterally. Abdomen: Soft, nondistended. No masses. Extremities: Moves all extremities. She has no edema. Neurologic: No focal changes. She is awake, alert, and oriented. Skin: Warm and dry. No rashes. ASSESSMENT: 1. Right lower lobe pneumonia. 2. Hypoxic respiratory failure, acute on chronic. The patient is on intermittently using oxygen at home. Currently she is on high-flow, approximately 20 L of oxygen. 3. Coagulopathy. The patient is on Coumadin. INR is stable 2.2. 4. Chronic obstructive pulmonary disease with exacerbation. 5. Pulmonary edema. PLAN: The patient continues to be negative fluid status. She is negative another 2.4 L, approximately 6.5 L total. We will continue Lasix as her kidney functions remain stable. Continue azithromycin and Rocephin, and high-flow oxygen. Will wean as tolerated. cc: Akhil Ojdea MD
[2018-07-13] MEDS: COUMADIN PO SCH (20:09)
[2018-07-13] MEDS: ROPINIROLE HCL PO SCH (20:09)
[2018-07-13] MEDS: ZANAFLEX PO SCH (20:09)
[2018-07-13] MEDS: PRAVACHOL PO SCH (20:09)
[2018-07-13] MEDS: KLONOPIN PO SCH (20:09)
[2018-07-14] MEDS: DUONEB (A & A) INH SCH ×3 (03:59→12:03)
[2018-07-14] MEDS: PROTONIX PO SCH (06:05)
[2018-07-14 07:06] LABS: BASO# 0.03 X1000 (0.0-0.2); BASO% 0.5 % (0.0-0.8); EOS# 0.12 X1000 (0.0-0.7); HEMATOCRIT 34.1 % (37.0-47.0); HEMOGLOBIN 10.3 g/dL (12.0-16.0); IMM GRAN# 0.03 X1000 (0.0-0.04); IMM GRAN% 0.5 % (0.0-0.5); LYMPH# 1.24 X1000 (1.2-3.4); LYMPH% 20.5 % (20.5-51.1); MCH 26.8 PG (27-31); MCHC 30.2 g/dL (33-37); MCV 88.6 FL (81-99); MONO# 0.71 X1000 (0.11-0.59); MONO% 11.7 % (1.7-9.3); MPV 8.9 FL (7.4-10.4); NEUT# 3.93 X1000 (1.4-6.5); NEUT% 64.8 % (42.2-75.2); PLT 386 X1000 (130-400); RBC 3.85 XMIL (4.2-5.4); RDW 15.5 % (11.5-14.5); WBC 6.06 X1000 (4.8-10.8)
[2018-07-14 07:29] LABS: ESTIMATED GFR > 60; INR 2.46; PROTIME 27.8 Seconds (11.0-16.0)
[2018-07-14 07:31] VITALS: BP 112/47
[2018-07-14 07:33] LABS: AGAP 7; ALBUMIN 2.1 g/dL (3.5-5.0); ALKALINE PHOSPHATASE 221 U/L (32-104); BUN 11 mg/dL (8-22); CALCIUM 8.9 mg/dL (8.8-10.2); CHLORIDE 96 mmol/L (98-107); COSMO 284; CREATININE 0.8 mg/dL (0.5-0.9); GLUCOSE 96 mg/dL (70-104); GOT 28 U/L (10-30); GPT 16 U/L (10-36); POTASSIUM 3.4 mmol/L (3.5-5.1); SODIUM 143 mmol/L (136-145); TCO2 40 mmol/L (25-35); TOTAL PROTEIN 5.5 g/dL (6.3-8.3)
[2018-07-14 09:25] LABS: LYMPHS 25 % (21-51); MONO 5 % (1-9); NRBC 1 % (0-0); SEGS 68 % (42-75)
[2018-07-14] MEDS: VITAMIN D PO SCH (11:20)
[2018-07-14] MEDS: ASPIRIN EC PO SCH (11:21)
[2018-07-14] MEDS: LASIX PO SCH (11:21)
[2018-07-14] MEDS: ZITHROMAX PO SCH (11:21)
[2018-07-14] MEDS: FLONASE NAS SCH (11:21)
[2018-07-14] MEDS: NON-FORMULARY MED PO SCH (11:22)
[2018-07-14] MEDS: ROCEPHIN 1 GM in NS 50 ML IV SCH (11:22)
[2018-07-14] MEDS: MBX SOLUTION MT PRN (11:22)
--- NOTE | 2018-07-14 15:40 | DISCHARGE SUMMARY ---
ADMISSION DATE: 07/06/2018 DISCHARGE DATE: 07/14/2018 PRIMARY CARE PHYSICIAN: Dr. Yogi Schmitz. DISCHARGE DIAGNOSES: 1. Right lower lobe pneumonia. 2. Acute respiratory failure with hypoxemia. 3. Acute hypoxic respiratory failure in the setting of chronic respiratory failure. 4. Coagulopathy with an INR of 4.75 on admission; it is 2.46 today. 5. Chronic obstructive pulmonary disease, acute exacerbation. 6. Pulmonary edema, DIAGNOSTICS: 1. 07/06/2018 chest x-ray revealed emphysema, right lower lung infiltrates and cardiomegaly. Repeat chest x-ray 07/10/2018 revealed worsened atelectasis versus pneumonia at the left lower lobe to a lesser extent the right lower lobe with the possibility of pulmonary edema is suspected right pleural fluid collection worsen. 2. Echocardiogram revealed normal LV size. Mild LVH with posterior and intraventricular septal wall thickness 0.9 and 1.2 respectively. LV systolic function was difficult to estimate secondary to septal motion consistent with intraventricular conduction delay or pacing. Estimated EF is around 50%. Aortic valve opens well. No evidence of stenosis or insufficiency. Aorta appears normal in visualized segments. No pericardial effusion. There does appear to be a pleural effusion. Left atrium is mildly enlarged. No mitral valve prolapse. Mild mitral regurgitation. Mild tricuspid regurgitation. Normal RV size and systolic function. No significant pulmonic insufficiency. 3. Microbiology: Blood cultures x2 revealed no growth after 5 days. 4. Urine revealed mixed shanice. HOSPITAL COURSE: Ms. Hicks presented to the emergency room complaining of fatigue, body aches and shortness of breath for a week. She was found to be in hypoxic respiratory failure having a saturation of 85% while on 2 L on arrival. ABGs on 3 L revealed a pCO2 of 59 and a PO2 of 62. On the morning of the sixth, she had a worsening of her pneumonia on a chest x-ray with O2 saturations being 90 to 93. During the night of the fifth, she had saturations drop down to the 86 to 90 range. She was placed on high-flow O2. We continued with antibiotics DuoNebs, high-flow O2. We continued diuresis as well as Rocephin and azithromycin for antibiotic coverage. Thankfully, she improved and we were able to wean oxygen back down to 2 L with saturations 93 to 95 percent. She diuresed 13,100 mL, having a net negative of [id number]. She reports breathing much better, feeling much better. While sitting in the bed, she states she still is fatigued when she has to get out and does not want to get out of bed due to this. On arrival, her INR was 4.3. I matched at 4.75. We held her Coumadin. INR's on the fifth they did drop down to the 2.2 to 2.6 range, and she is back on Coumadin at 1 mg at bedtime. DISCHARGE VITAL SIGNS: Blood pressure is 112/47 with a heart rate of 80, respirations are 18, temperature is 98.2 degrees with O2 saturation that are ranging 93% to 96% on 2 L. She does feel comfortable. DISCHARGE PHYSICAL EXAM: She has a regular rate and rhythm. S1 and S2 appreciated. She has no lower extremity edema. Peripheral pulses are palpable x4 extremities. Pulmonary breath sounds are clear; they are diminished at the bases somewhat. Chest rises and falls symmetric with respiration. Chest wall is nontender to palpation. Gastrointestinal: Abdomen is soft, nontender, nondistended with bowel sounds in all 4 quadrants. Neurologic: She is alert and oriented x3. Skin is warm and dry. DISCHARGE MEDICATIONS: 1. DuoNebs q. 4 hours or q. 2 hours p.r.n. 2. Aspirin 81 mg p.o. daily. 3. Omnicef 300 mg p.o. b.i.d. for 5 days. 4. Protonix 40 mg p.o. b.i.d. 5. Clonazepam 0.5 p.o. at bedtime. 6. Warfarin 1 mg p.o. at bedtime. 7. Flonase nose spray, 1 spray to each nostril daily. 8. Vitamin D 3 5000 unit capsule daily. 9. Requip 5 mg p.o. in the a.m. 10. Requip 10 mg p.o. at bedtime. 11. Zanaflex 4 mg p.o. at bedtime. 12. Lasix 40 mg p.o. daily. 13. Percocet 10 one q. 6 hours p.r.n. pain. FOLLOWUP: 1. She will need to follow up with her primary care physician on discharge from rehab per the medical receptionist's determination. 2. She will need an INR checked in 3 days. Of note her last dose of azithromycin was1-10. 3. She is being discharged for transfer to [facility] in stable condition. She will go via EMS transport. TIME SPENT: This is a greater than 30 minute discharge. Dictated by CHARLINE Gagnon for Akhil Ojeda MD This chart was documented by, CHARLINE Gagnon and accurately reflects the services performed, treatment plan and medical decisions as attested by the providers signature Akhil Ojeda MD. cc: CHARLINE Gagnon MD [facility]
[2018-07-14] MEDS: PERCOCET-10 PO PRN (16:09)
--- NOTE | 2018-07-15 08:29 | DISCHARGE SUMMARY ---
ADMISSION DATE: 07/06/2018 DISCHARGE DATE: 07/14/2018 ADDENDUM: Patient seen and examined by myself. Full note dictated and discussed with nurse practitioner. On discharge, the patient is awake and alert. She has been able to wean down to 2 L of oxygen. We will transition her to rehab. Further orders per them. cc: Akhil Ojeda MD
== END 2018-07-14 17:22 | disposition swing bed (61) | DRG 193 ==
LOC: P.ED 08:49 → P.EDIPHOLD 13:48 → SUATTDRO 13:48
PROVIDERS: ATTEND Family Medicine
CPT/HCPCS: 71020; 71046; 80048; 80053; 81001; 82805; 83605; 85025; 85610; 85651; 87040; 87088; 87275; 87276; 87804; 93306; 94640; 94667; 94668; 94761; 94799; 96365; 96366; 96367; 97110; 97161; 97530; 99285; A9270; C9113; J0456; J0696; J1940; J3430; J7030; J7040; S0164